=== PATIENT | female | born 1985 | race African-American/Black ===

== ENCOUNTER 2022-09-11 01:16 | Emergency (ER) | payer MEDICAID ==
[~2022-09-11] VITALS: Ht 162.6 cm; Wt 109.0 kg
[2022-09-11 02:32] LABS: HEMATOCRIT. 38.5 % (36.0-48.0); HEMOGLOBIN. 12.6 g/dL (12.0-16.0); MEAN CORPUSCULAR HEMOGLOBIN 26.1 pg (28.0-32.0); MEAN CORPUSCULAR VOLUME 79.7 fL (81.0-99.0); PLATELET 226 x1000/uL (130-400); RED BLOOD CELL COUNT 4.83 mill/uL (4.2-5.4); RED CELL DISTRIBUTION WIDTH 14.3 % (11.6-14.6)
[2022-09-11 02:55] LABS: CHLORIDE 106 mEq/L (98-107)
[2022-09-11 02:57] LABS: HCG SCREEN NEGATIVE
[2022-09-11 03:02] LABS: ETHANOL BLOOD < 10 mg/dL
[2022-09-11 03:32] LABS: PLATELET ESTIMATE NORMAL
[2022-09-11 06:47] LABS: *BARBITURATES SCREEN URINE NEGATIVE (NEGATIVE); *BENZODIAZEPINES SCREEN URINE NEGATIVE (NEGATIVE); *COCAINE SCREEN URINE NEGATIVE (NEGATIVE); CANNABINOID URINE SCREEN NEGATIVE (NEGATIVE); METHADONE URINE SCREEN NEGATIVE (NEGATIVE); OPIATES URINE SCREEN NEGATIVE (NEGATIVE); PHENCYCLIDINE URINE SCREEN NEGATIVE (NEGATIVE)
[2022-09-11 06:51] LABS: *AMPHETAMINES SCREEN URINE PRESUMTIVE POSITIVE (NEGATIVE)
[2022-09-11] MEDS ORDERED: LORAZEPAM 2MG/ML CPJ IM PRN (10:45)
[2022-09-12] MEDS ORDERED: LORAZEPAM 2MG/ML CPJ IM ONE (01:45)
[2022-09-12] MEDS ORDERED: SERTRALINE HCL 50MG TABLET PO SCH (12:00)
[2022-09-12] MEDS ORDERED: RISPERIDONE 1MG TABLET PO SCH (21:00)
[2022-09-12] MEDS ORDERED: LORAZEPAM 1MG TABLET PO ONE (21:30)
[2022-09-13 07:06] VITALS: BP 115/90
== END 2022-09-13 07:12 ==
LOC: ER 01:31
DX: R45.851 Suicidal ideations (principal); E78.00 Pure hypercholesterolemia, unspecified; F20.9 Schizophrenia, unspecified; Z20.822 Contact with and (suspected) exposure to COVID-19
CPT/HCPCS: 36415; 80053; 80305; 80307; 80320; 80329; 84703; 85025; 87426; 93005; 96372; 99285; C9803; J2060; Z7610; G0480

== ENCOUNTER 2023-10-28 18:54 | Emergency (ER) | payer MEDICAID ==
[~2023-10-28] VITALS: Ht 170.2 cm; Wt 84.0 kg
[2023-10-28] MEDS: OLANZAPINE 10 MG/VIAL IM ONE (19:42)
[2023-10-28] MEDS: LORAZEPAM 2MG/ML INJ IM ONE (19:42)
[2023-10-28 21:07] LABS: BASOPHILS % 0.5 % (0.0-2.0); DIFFERENTIAL COMMENT 0; EOSINOPHILS % 0.3 % (0.0-5.0); HEMATOCRIT. 39.9 % (36.0-48.0); HEMOGLOBIN. 13.2 g/dL (12.0-16.0); MEAN CORPUSCULAR HEMOGLOBIN 26.4 pg (28.0-32.0); MEAN CORPUSCULAR VOLUME 79.9 fL (81.0-99.0); MEAN PLATELET VOLUME 8.5 fl (7.4-10.4); MONOCYTES % 4.7 % (2.0-8.0); NEUTROPHILS % 81.5 % (40.0-76.0); PLATELET 338 x1000/uL (130-400); RED BLOOD CELL COUNT 4.99 mill/uL (4.2-5.4); RED CELL DISTRIBUTION WIDTH 14.9 % (11.6-14.6); WHITE BLOOD COUNT 10.7 x1000/uL (4.5-11.0)
[2023-10-28 21:13] LABS: CHLORIDE 108 mEq/L (98-107); POTASSIUM 4.5 mEq/L (3.5-5.1); SODIUM 137 mEq/L (136-145)
[2023-10-28 21:14] LABS: CARBON DIOXIDE 23 mEq/L (21-32)
[2023-10-28 21:15] LABS: CALCIUM 9.7 mg/dL (8.7-10.4)
[2023-10-28 21:19] LABS: CREATININE 1.2 mg/dL (0.6-1.0); GLUCOSE 93 mg/dL (70-105); UREA NITROGEN BLOOD 11 mg/dL (9-23)
[2023-10-28 21:26] LABS: ETHANOL BLOOD < 10 mg/dL (<10)
[2023-10-29 02:24] LABS: CLARITY URINE CLEAR (CLEAR); COLOR URINE DARK YELLOW (YELLOW); GLUCOSE URINE NEGATIVE (NEGATIVE); KETONES URINE TRACE (NEGATIVE); LEUKOCYTE ESTERASE URINE TRACE (NEGATIVE); NITRITE URINE NEGATIVE (NEGATIVE); OCCULT BLOOD URINE NEGATIVE (NEGATIVE); PROTEIN URINE 1+ (NEGATIVE); SPECIFIC GRAVITY URINE 1.032 (1.005-1.030)
[2023-10-29 02:31] LABS: *AMPHETAMINES SCREEN URINE PRESUMPTIVE POSITIVE (NEGATIVE); *BARBITURATES SCREEN URINE NEGATIVE (NEGATIVE); *BENZODIAZEPINES SCREEN URINE NEGATIVE (NEGATIVE); *COCAINE SCREEN URINE NEGATIVE (NEGATIVE)
[2023-10-29 02:32] LABS: CANNABINOID URINE SCREEN NEGATIVE (NEGATIVE); ECSTASY MDMA SCREEN URINE CONF.TEST INDICATED (NEGATIVE); METHADONE URINE SCREEN NEGATIVE (NEGATIVE); OPIATES URINE SCREEN NEGATIVE (NEGATIVE); PHENCYCLIDINE URINE SCREEN NEGATIVE (NEGATIVE)
[2023-10-29 04:08] LABS: BACTERIA URINE 1+; HYALINE CASTS URINE 0-5 /lpf; MUCUS URINE 3+ /lpf (< = 2+); RBC URINE 0-2 /hpf (0-2); SQUAMOUS EPITHELIAL CELL URINE 1+ /lpf (RARE/1+); WBC URINE 0-2 /hpf (0-2)
[2023-10-29 08:00] VITALS: BP 117/72; PULSE 78; RESP 18; TEMP 98.4
== END 2023-10-29 12:47 | disposition home or self-care (01) ==
LOC: ER 18:54
DX: F28 Other psychotic disorder not due to a substance or known physiological condition (principal); E78.00 Pure hypercholesterolemia, unspecified; I10 Essential (primary) hypertension; F20.9 Schizophrenia, unspecified
CPT/HCPCS: 80048; 80320; 85025; 36415; 96372; 99285; J3490; J2060; Z7610 ×2; G0480

== ENCOUNTER 2023-10-31 02:00 | Emergency (ER) | payer MEDICAID, OTHER ==
[~2023-10-31] VITALS: Ht 165.1 cm; Wt 65.0 kg
[2023-10-31 02:01] VITALS: O2SAT 98
[2023-10-31 05:38] LABS: *AMPHETAMINES SCREEN URINE PRESUMPTIVE POSITIVE (NEGATIVE)
[2023-10-31 05:39] LABS: *BARBITURATES SCREEN URINE NEGATIVE (NEGATIVE); *BENZODIAZEPINES SCREEN URINE NEGATIVE (NEGATIVE); *COCAINE SCREEN URINE NEGATIVE (NEGATIVE); CANNABINOID URINE SCREEN NEGATIVE (NEGATIVE); ECSTASY MDMA SCREEN URINE CONF.TEST INDICATED (NEGATIVE); METHADONE URINE SCREEN NEGATIVE (NEGATIVE); OPIATES URINE SCREEN NEGATIVE (NEGATIVE); PHENCYCLIDINE URINE SCREEN NEGATIVE (NEGATIVE)
[2023-10-31] MEDS: LORAZEPAM 1MG TABLET PO ONE (06:49)
[2023-10-31] MEDS: HALOPERIDOL 5MG TABLET PO ONE (06:49)
[2023-10-31 12:01] VITALS: BP 130/70; PULSE 86; RESP 18; TEMP 98
== END 2023-10-31 13:27 | disposition home or self-care (01) ==
LOC: ER 02:02
DX: R44.1 Visual hallucinations (principal); E78.00 Pure hypercholesterolemia, unspecified; I10 Essential (primary) hypertension
CPT/HCPCS: 99284; 80305; J1630